=== PATIENT | male | born 1990 | race Caucasian/White ===

== ENCOUNTER 2016-08-04 19:32 | Emergency (ER) | payer MEDICAID ==
[2016-08-04 19:44] VITALS: TEMP 98.1
--- NOTE | 2016-08-04 20:12 | EDPHY ---
HPI/HX/ROS/PE/MDM Narrative: CHIEF COMPLAINT: Finger laceration HISTORY OF PRESENT ILLNESS: This patient is a 26 year old male arriving today complaining of left middle finger pain secondary to an accidental laceration injury at work. He states that one hour ago, he "smashed" his finger in a dicer that slices vegetables. He reports that the injured finger feels numb. He states his tetanus shot is up to date. He denies any other trauma or associated symptoms. REVIEW OF SYSTEMS: Aside from elements discussed in the HPI, a comprehensive 10-point review of systems was reviewed and is negative. PAST MEDICAL HISTORY: Denies. SOCIAL HISTORY: Works at [employer]. VITAL SIGNS: Reviewed by me GENERAL: Well-developed, well-nourished, resting comfortably in no respiratory distress. HEENT: Atraumatic. LUNGS: Clear to auscultation bilaterally. CARDIAC: Regular rate and rhythm. ABDOMEN: Soft, nontender, nondistended. BACK: No CVA tenderness. EXTREMITIES: Stellate laceration to the radial side of the distal tip of the left middle phalanx. Brisk capillary refill. Flexor tendons intact. Otherwise unremarkable. NEURO: Alert and oriented, grossly nonfocal. SKIN: Warm and dry, no rash. PSYCHIATRIC: Normal mentation, no agitation. Portions of this note were transcribed by a special forces medical sergeant. I personally performed a history, physical exam, medical decision making, and confirmed accuracy of information the transcribed note. ED Course: This patient is a 26 year old male presenting with a stellate, macerated laceration on the distal tip of the left middle phalanx. No other injuries identified. Digital nerve block utilizing bupivacaine without epinephrine. The wound was cleaned with standard ED protocol, And explored. No deep structures are identified. Bleeding is well controlled. The patient prefers not to have sutures at this point. The wound will be closed with steri-strips and dressed appropriately. The patient will be discharged home in good condition. He is comfortable with this plan. MDM: Differential diagnosis for the patient's injury was considered including but not limited to contusion, abrasion, laceration, fracture, open fracture, or dislocation. General Time Seen by Provider: 08/04/16 20:02 Initial Vital Signs: Initial Vital Signs Temperature (C) 36.7 C 08/04/16 19:42 Heart Rate 64 08/04/16 19:42 Respiratory Rate 18 08/04/16 19:42 Blood Pressure 121/60 H 08/04/16 19:42 O2 Sat (%) 98 08/04/16 19:42 O2 Delivery Mode Room Air Allergies/Adverse Reactions: No Known Allergies Allergy (Unverified 08/04/16 19:44) Home Medications: Medication Instructions Recorded NK [No Known Home Meds] 08/04/16 Departure - Departure Disposition: Home, Routine, Self-Care Clinical Impression: Finger laceration Qualifiers: Encounter type: initial encounter Finger: middle finger Damage to nail status: without damage Foreign body presence: without foreign body Laterality: left Qualified Code(s): S61.213A - Laceration without foreign body of left middle finger without damage to nail, initial encounter Condition: Good Instructions: Finger Laceration (ED) Additional Instructions: 1. Keep the dressing on your finger for the next 24-48 hours. You should perform only limited work with your left hand until bleeding is fully controlled. 2. You may take Ibuprofen 600mg every 6-8 hours with food as needed for pain control. 3. Contact a healthcare provider if you develop increased redness, heat, or discharge in the injured area, or if you develop fever, chills, nausea, or other worsening of condition. Referrals: Nery Cortez MD [Medical Doctor] - As per Instructions Report Scribed for: Swati Byers Report Scribed by: Kathy Storm Date of Report: 08/04/16 Time of Report: 20:16
[2016-08-04 21:50] VITALS: BP 125/65; PULSE 69; RESP 16; O2SAT 96
== END 2016-08-04 21:49 | disposition home or self-care (01) ==
PROC: 3E0T3CZ (ICD-10-PCS; principal; 2016-08-04)
DX: S61.213A Laceration without foreign body of left middle finger without damage to nail, initial encounter (principal); W26.9XXA Contact with unspecified sharp object(s), initial encounter; Y92.69 Other specified industrial and construction area as the place of occurrence of the external cause; Y99.0 Civilian activity done for income or pay

== ENCOUNTER 2016-09-24 20:37 | Emergency (ER) | payer MEDICAID ==
[2016-09-24] MEDS ORDERED: predniSONE 20 MG TAB PO ONE (21:39)
--- NOTE | 2016-09-24 21:42 | EDPHY ---
H & P Stated Complaint: allergic reaction x2 days- generalized rash, itching - Personal History Current Tetanus/Diphtheria Vaccine: Yes Current Tetanus Diphtheria and Acellular Pertussis (TDAP): Yes Tetanus Vaccine Date: <10 years - Medical/Surgical History Hx Asthma: No Hx Chronic Respiratory Disease: No Hx Diabetes: No Hx Cardiac Disease: No Hx Renal Disease: No Hx Cirrhosis: No Hx Alcoholism: No Hx HIV/AIDS: No Hx Splenectomy or Spleen Trauma: No Other PMH: DENIES - Social History Smoking Status: Current some day smoker HPI/ROS: Chief complaint: Allergic reaction History of present illness: This is a 26-year-old male who presents to the emergency department concerned he is having an allergic reaction. Patient reports he has been having symptoms intermittently for the last 3-4 days. He states he believes it began after he was given a dose of 800 mg of ibuprofen, he has never taken such a high dose. After taking this dose of ibuprofen his lips swelled up. He developed a rash across his body. He describes welts. They have been waxing and waning. He has been attempting to treat them with Benadryl which has been helping but not resolving the problem. He denies other associated signs or symptoms including no difficulty breathing. He does state he has been drinking a lot lately and wonders if this is contributing to his symptoms. He denies other precipitating factors. He has never had similar. (Ru Yanes) - Physical Exam Exam: General Appearance: Alert, nontoxic. Eyes: Pupils equal and round no injection. ENT: No angioedema. No hoarseness. No drooling. No stridor. Respiratory: Chest is non tender, lungs are clear to auscultation. Cardiac: regular rate and rhythm Gastrointestinal: Abdomen is soft and non tender, no masses, bowel sounds normal. Musculoskeletal: Neck is supple and non tender. Extremities have full range of motion and are non tender. Skin: There is some urticarial lesions to the upper back and shoulders. No swelling to the face, neck or other parts of the body noted. Neurological: Alert and oriented. Ambulating without difficulty. (Ru Yanes) Constitutional: Initial Vital Signs Temperature (C) 37.0 C 09/24/16 20:41 Heart Rate 112 H 09/24/16 20:41 Respiratory Rate 16 09/24/16 20:41 Blood Pressure 138/79 H 09/24/16 20:41 O2 Sat (%) 96 09/24/16 20:41 O2 Delivery Mode Room Air Allergies/Adverse Reactions: ibuprofen Allergy (Verified 09/24/16 20:44) Anaphylaxis Home Medications: Medication Instructions Recorded predniSONE 40 mg PO DAILY 3 Days 09/24/16 Medical Decision Making ED Course/Re-evaluation: Patient seen under the supervision of my secondary supervising physician Dr. Cristian Carlos. Patient presents to the emergency department concerned he is having an allergic reaction. He is nontoxic. No evidence of severe allergic reaction. Some urticaria is noted. I believe he is appropriate for outpatient management. He will be started on prednisone. He is asked to continue Benadryl and Zantac at home. He is asked to follow up with a primary care doctor for recheck. Strict return precautions are given. (Ru Yanes) I did not see this patient while he was in the emergency department. However his care was discussed with the PA while the patient was in the department. I agree with treatment plan and management (Cristian Carlos) Differential Diagnosis: Included but not limited to contact dermatitis, allergic reaction, anaphylaxis ( Ru Yanes) - Data Points Medications Given: Discontinued Medications Prednisone (Prednisone) 60 mg PO EDNOW ONE Stop: 09/24/16 21:40 Last Admin: 09/24/16 21:51 Dose: 60 mg Departure - Departure Disposition: Home, Routine, Self-Care Clinical Impression: Rash Condition: Good Instructions: Acute Rash (ED) Additional Instructions: Follow-up with a primary care doctor for recheck If symptoms worsen or new symptoms develop return to the emergency room for recheck Referrals: NONE *PRIMARY CARE P,. [Primary Care Provider] - As per Instructions [facility],. [Clinic] - As per Instructions Phan Branham MD [[facility] Primary Care Provider] - As per Instructions Prescriptions: predniSONE 40 mg PO DAILY 3 Days
[2016-09-24 21:54] VITALS: BP 125/74; PULSE 95; RESP 20; TEMP 98.1; O2SAT 98
== END 2016-09-24 21:56 | disposition home or self-care (01) ==
DX: R21 Rash and other nonspecific skin eruption (principal); F17.200 Nicotine dependence, unspecified, uncomplicated